=== PATIENT | male | born 1940 | race Caucasian/White ===

== ENCOUNTER 2018-08-02 09:08 | Emergency (ER) | payer OTHER ==
[~2018-08-02] VITALS: Ht 172.7 cm; Wt 98.4 kg
[2018-08-02 10:32] VITALS: BP 144/78
[2018-08-02] MEDS ORDERED: KETOROLAC TROMETH 60MG/2ML VIAL IM ONE (10:45)
[2018-08-02] MEDS ORDERED: methylPREDNISolone SOD SUCC 125 MG/2 ML VL IM ONE (10:45)
[2018-08-02] MEDS ORDERED: cefTRIAXone SOD 1,000 MG VL IM ONE (10:45)
[2018-08-02] MEDS ORDERED: LIDOCAINE 2% (LOCAL ANESTH.) PF 5ml SDV ONE (11:01)
== END 2018-08-02 11:39 | disposition home or self-care (01) ==
LOC: ER 09:08
DX: L02.01 Cutaneous abscess of face (principal); I10 Essential (primary) hypertension; Z86.73 Personal history of transient ischemic attack (TIA), and cerebral infarction without residual deficits; Z90.89 Acquired absence of other organs
CPT/HCPCS: 96372; 99284; J0696; J1885; J2930; J2001